=== PATIENT | male | born 1990 | race Caucasian/White ===

== ENCOUNTER 2024-10-24 15:00 | Emergency (ER) | payer BC, SELFPAY ==
[2024-10-24 15:02] VITALS: BP 170/110; PULSE 84; RESP 12; TEMP 36.7; O2SAT 98
[2024-10-24] MEDS: LORazepam 1 MG TAB PO (15:39)
--- NOTE | 2024-10-24 15:42 | ED.GENADUL_ITS ---
Discharge Plan Discharge Details Chief Complaint: PsychEval Clinical Impression: Depression ED Provider: Bartolome Humphreys Home Meds and New Rx's Prescriptions: No Action No Known Home Meds HPI General Mode of arrival: ambulatory . Date/Time Provider Initiated Documentation: 10/24/24 15:01 . Limitations to Documentation: no limitations . Information obtained by: patient . History of Present Illness 34 year old M presents to the emergency department with the chief complaint of depression/si, described as moderate, Patient started experiencing this month(s) (3) and it has been constant. No relieving factors improve symptom(s), No exacerbating factors reported . Patient notes denies chest pain, fever/chills and shortness of breath. Patient did receive the following treatments prior to arrival, none Related Data Home Medications ?Medication ?Instructions ?Recorded ?Confirmed Unknown [No Known Home Meds] 10/24/24 10/24/24 Allergies Allergy/AdvReac Type Severity Reaction Status Date / Time No Known Allergies Allergy Unverified 10/24/24 15:14 General Stated Complaint: PsychEval EVIE: 2 Review of Systems All systems reviewed & are unremarkable except as noted in HPI and below Constitutional Constitutional: Denies chills, Denies fever(s) and Denies weakness Cardiovascular Cardiovascular: Denies chest pain and Denies dyspnea Respiratory Respiratory: Denies cough and Denies dyspnea Gastrointestinal Gastrointestinal: Denies abdominal pain, Denies nausea and Denies vomiting Integumentary/Breasts Skin/Breast: Denies rash Neurologic Neurologic: Denies weakness Psychiatric Psychiatric: Reports depression Exam Const General: anxious Orientation: alert HENMT Head: normal to inspection Ears: external ears normal General nose exam: external nose normal Mouth: moist mucous membranes Eyes General: appearance normal, both eyes and all related structures Neck Neck: normal visual inspection Resp Effort & Inspection: normal respiratory effort and able to speak in complete sentences Cardio Rate: regular rate Skin General skin exam: no rashes or lesions noted Neuro General: patient alert and patient oriented x3 Extrem General: normal to inspection Psych Appearance: grossly normal Attitude: cooperative Thought Process: normal Course Vital Signs Vital signs: Vital Signs Temperature 36.7 C 10/24/24 15:02 Pulse 84 10/24/24 15:02 Respiratory Rate 12 10/24/24 15:02 Blood Pressure 170/110 H 10/24/24 15:02 Pulse Oximetry 98 10/24/24 15:02 Temperature 36.7 C 10/24/24 15:02 Temperature Source Oral 10/24/24 15:02 Pulse 84 10/24/24 15:02 Respiratory Rate 12 10/24/24 15:02 Blood Pressure 170/110 H 10/24/24 15:02 Blood Pressure Position Sitting 10/24/24 15:02 Pulse Oximetry 98 10/24/24 15:02 Oxygen Delivery Method Room Air 10/24/24 15:02 Oxygen Flow Rate 0 10/24/24 15:02 Pain Level 0 10/24/24 15:02 Medical Decision Making 34-year-old male who denies any chronic medical problems or substance abuse comes in with several months of worsening depression and thoughts of self-harm. He says that he had thoughts of wanting to kill himself by overdosing on carbon monoxide. He has not made any attempts to harm himself. He is currently calm and cooperative with a normal gait and does appear anxious and states he does feel anxiety. He has no focal neurological deficits, no meningismus, he denies any fevers or chills. I suspect depression given his reassuring exam I doubt underlying medical process, will obtain screening labs and have mental health evaluate. Patient was assessed prehospital he and mental health will be sending out referrals for voluntary placement. Lab Data Lab results reviewed: Yes I reviewed the patient's lab results. Quality:[facility] Health Related Social Needs: No Data to Display [facility] All Active Problems (Updated 10/24/24 @ 17:25 by Bartolome Humphreys MD) Depression (Chronic) Social History Smoking/Tobacco Use Status: Former Tobacco Use Smoking risk assessment performed?: Yes Alcohol Intake: current Alcohol Intake frequency: a few times a week Alcohol type: beer Drug use: Never Substance use type: does not use Housing: house Do you feel safe at home: Yes Do you feel safe in your relationship?: Yes PAWSS Have you Been Recently Intoxicated or Drunk Within the Last 30 days?: Yes Have you Ever Experienced Previous Episodes of Alcohol Withdrawal?: No Have you ever Experienced Withdrawal Seizures?: No Have you ever Experienced Delirium Tremens(DT)s?: No Have you ever undergone Alcohol Rehabilitation Treatment (i.e, inpt ot outpatient treatment programs)?: No Have you ever Experienced Blackouts?: Yes Have you ever Combined Alcohol with other Downers within the last 90 days?: No Have you ever Combined Alcohol with any other Substance of Abuse during the last 90 days?: No Positive Blood Alcohol level on Presentation? [PCS.BAL]: No Evidence of Increased Autonomic Activity (i.e. HR>120, tremor, sweating, agitation, nausea)?: No Result: 2
[2024-10-24 15:53] LABS: Abs Immature Grans 0.03 10^3/uL (0.0-0.06); Absolute Basophil Count 0.08 10^3/uL (0.0-0.2); Absolute Eosinophil Count 0.21 10^3/uL (0.0-0.7); Absolute Monocyte Count 0.77 10^3/uL (0.1-0.8); Absolute Neutrophil Count 6.53 10^3/uL (1.2-6.7); Basophils % 0.8 %; Eosinophils % 2.2 %; HCT 52.3 % (40.0-50.0); HGB 17.8 g/dL (13.5-17.5); Immature Grans % 0.3 %; MCH 30.8 pg (27.0-33.0); MCV 91 fL (80-95); MPV 10.3 fL (8.0-11.0); Monocytes % 8.1 %; Neutrophils % 68.6 %; Platelet Count 277 10^3/uL (130-400); RBC 5.78 10^6/uL (4.36-5.78); RDW 11.8 % (11.8-14.1); RDW-SD 38.9 fL; WBC 9.52 10^3/uL (4.4-10.8)
[2024-10-24 16:21] LABS: ALT 40 U/L (16-63); AST 19 U/L (15-37); Albumin 4.5 g/dL (3.4-5.0); Alkaline Phosphatase 78 U/L (46-116); BUN 9 mg/dL (7-18); Bilirubin, Total 0.6 mg/dL (0.2-1.0); CREATININE 1.3 mg/dL (0.70-1.30); Calcium 10.1 mg/dL (8.5-10.1); Chloride 102 mmol/L (98-107); Estimated GFR 73.47 (mL/min/1.73m2); Glucose 108 mg/dL (74-106); Potassium 3.8 mmol/L (3.5-5.1); Sodium 141 mmol/L (136-145); TSH (W/Ref FT4) 2.57 uIU/mL (0.36-3.74); Total Protein 8.6 g/dL (6.4-8.2)
[2024-10-24 16:24] LABS: ETHANOL BLOOD < 3.0 mg/dL (<10)
[2024-10-24 16:25] LABS: Salicylate < 2.8 mg/dL (<2.8)
[2024-10-24 16:27] LABS: Acetaminophen < 2 ug/mL (10-30)
--- NOTE | 2024-10-24 16:42 | PDOC.MHCN_ITS ---
Date of service: 10/24/24 Time of Service: 14:00 PHQ-9 Over the last 2 weeks, how often have you been bothered by any of the following problems? 1. Little interest or pleasure in doing things: more than half the days 2. Feeling down, depressed, or hopeless: nearly every day 3. Trouble falling or staying asleep, or sleeping too much: more than half the days 4. Feeling tired or having little energy: more than half the days 5. Poor appetite or overeating: more than half the days 6. Feeling bad about yourself - or that you are a failure or have let yourself and your family down: nearly every day 7. Trouble concentrating on things, such as reading the newspaper or watching television: several days 8. Moving or speaking so slowly that other people could have noticed? - Or the opposite - being so fidgety or restless that you have been moving around a lot more than usual: not at all 9. Thoughts that you would be better off or of hurting yourself in some way: nearly every day Total score: 18 Source: Developed by Drs. Bhanu Ortega, Darline Castaneda, Doug Fink and colleagues, with an educational alice from [employer]. Suicide Severity Rate CSSRS Have you wished you were or wished you could go to sleep and not wake up?: Yes Have you actually had any thoughts of killing yourself?: Yes CSSRS2 Have you been thinking about how you might do this?: Yes Have you had these thoughts and had some intention of acting on them?: Yes Have you started to work out or worked out the details of how to kill yourself? Do you intend to carry out this plan?: Yes CSSRS3 Have you ever done anything, started to do anything or prepared to do anything to end your life?: No CSSRS4 Was this within the past three months?: Yes Screening Score Total Score: 6 Screening: Positive Mental Health Emergency Note Release [facility] release signed:: Yes Reason for Visit Actively suicidal In the last 2 weeks has the pt presented for ES prior to today?: No Non Suicidal Self Injury Current: No History: No Safety Risk/Harm to Self or Others Current Ideation to Harm Self or Others: Yes to self. Intent: yes, has intent. Plan: yes,has a plan. Risk: Does risk to harm exist?: yes. Access to means: Yes. Risk: High Risk Duty to warn indicated: No Asssessment/Mental Status Appearance: Well groomed Attitude: Cooperative, Guarded and Friendly Behavior: Unremarkable Speech: Normal and Soft Affect: Cogruent with mood Mood: Sad, Stressed, Depressed and Anxious Thought process: Goal directed Hallucinations: No Delusions: No Attention: Unremarkable Perception: Not impaired Orientation: Fully orientated Memory: Intact Insight: Fair Judgement: Poor Neurovegetative Symptoms Sleep: Decrease Appetitie: Decrease Interests: Decrease Energy: Decrease Libido: Not applicable Substance Use: Other (none) Drug Issues: Other (none) Do you use nicotine?: No Have you used substances in the last 7 days?: No Additional Issues: Assaultive/Threatening Behavior: No Medical Concerns: No Client engaged in active self harm w/weapon: No Threatening to run away: No Child reported abuse/neglect: No Voluntarily presenting for services: Yes Domestic violence is a concern: No Extreme Psychosis or extreme behavior is present: No Impression Very nice and appropriate man who is seeking supports due to active suicidal thoughts with a plan [facility] and [facility] (therapy and case management) Plan/Disposition Recommended Disposition: Hospitalization (waitng on medical from hospital then will be faxed) No. Plan: [facility] zone B [facility] Person reported agreement to plan: Yes Facilities contacted if Applicable [facility] (medical has not been faxed as of yet but will be forthcoming) Not accepted, No bed available [facility] (medical has not been faxed as of yet but will be forthcoming) Not accepted, (waiting on medical) Other (waiting on medical from hospital), [facility] (medical has not been faxed as of yet but will be forthcoming) Not accepted, (waiting for fax with medical to send) Other (waiting on fax from hospital to send out) Reports/communication Outcome discussed with: ED/Personnel
[2024-10-25 06:30] LABS: Bilirubin Negative (Negative); Blood Negative (Negative); Clarity Clear (Clear); Glucose Negative (Negative); Ketones Trace mg/dL (Negative); Leukocyte Esterase Small (Negative); Nitrite Positive (Negative); Urobilinogen 0.2 mg/dL (Up to 0.2); pH 6.5 (5-8)
--- NOTE | 2024-10-25 06:31 | W.EDPROG ---
Date of service: 10/25/24 Time of Service: 06:31 Medical Decision Making Patient had presented to ED with depression and thoughts of self-harm. He has been medically cleared. He is being held voluntarily for psychiatric admission. No issues overnight. Quality:[facility] Health Related Social Needs: No Data to Display Discharge Plan Discharge Details Chief Complaint: PsychEval Clinical Impression: Depression Primary Care Provider: Unknown,Unknown ED Provider: Bhanu Beal Home Meds and New Rx's Prescriptions: No Action No Known Home Meds
[2024-10-25 06:45] LABS: Bacteria Many HPF (Negative); C & S Indicated? No; Casts Negative LPF (Negative); Crystals Negative HPF (Negative); Epithelial Cells Many HPF (Negative); Mucus Trace (Negative); RBC 0-2 HPF (0-2)
--- NOTE | 2024-10-25 07:21 | W.EDPROG ---
Date of service: 10/25/24 Time of Service: 07:21 Medical Decision Making I received signout on this patient. Please see my separate note for details. I ordered the patient a regular diet on safety tray. He has no home medications. Patient here for voluntary psychiatric admission for depression and SI. Has been cooperative. 4:40 PM No active behavioral issues last shift. Patient was found to have an acute UTI for which I treated him with 10 days of cefpodoxime. Quality:[facility] Health Related Social Needs: No Data to Display Discharge Plan Discharge Details Chief Complaint: PsychEval Clinical Impression: Depression, Acute UTI Primary Care Provider: Unknown,Unknown ED Provider: Bradly Duggan Home Meds and New Rx's Prescriptions: No Action No Known Home Meds
--- NOTE | 2024-10-25 13:03 | MHPN_ITS ---
Date of service: 10/25/24 Time of Service: 09:45 PHQ-9 Over the last 2 weeks, how often have you been bothered by any of the following problems? 1. Little interest or pleasure in doing things: several days 2. Feeling down, depressed, or hopeless: nearly every day 3. Trouble falling or staying asleep, or sleeping too much: several days 4. Feeling tired or having little energy: more than half the days 5. Poor appetite or overeating: several days 6. Feeling bad about yourself - or that you are a failure or have let yourself and your family down: more than half the days 7. Trouble concentrating on things, such as reading the newspaper or watching television: several days 8. Moving or speaking so slowly that other people could have noticed? - Or the opposite - being so fidgety or restless that you have been moving around a lot more than usual: several days 9. Thoughts that you would be better off or of hurting yourself in some way: nearly every day Total score: 15 Source: Developed by Drs. Bhanu Ortega, Darline Castaneda, Doug Fink and colleagues, with an educational alice from [employer]. Suicide Severity Rate CSSRS Have you wished you were or wished you could go to sleep and not wake up?: Yes Have you actually had any thoughts of killing yourself?: Yes CSSRS2 Have you been thinking about how you might do this?: Yes Have you had these thoughts and had some intention of acting on them?: Yes Have you started to work out or worked out the details of how to kill yourself? Do you intend to carry out this plan?: Yes CSSRS3 Have you ever done anything, started to do anything or prepared to do anything to end your life?: No CSSRS4 Was this within the past three months?: No Screening Score Total Score: 4 Screening: Positive Mental Health Emergency Note Release [facility] release signed:: Yes Reason for Visit suicidal ideation with a plan, anxiety, and depression In the last 2 weeks has the pt presented for ES prior to today?: No Non Suicidal Self Injury Current: No History: No Safety Risk/Harm to Self or Others Current Ideation to Harm Self or Others: Yes to self. Intent: yes, has intent. Plan: yes,has a plan. Risk: Does risk to harm exist?: yes. Risk: High Risk Duty to warn indicated: No Asssessment/Mental Status Appearance: Other (hospital scrubs) Attitude: Cooperative and Friendly Behavior: Unremarkable Speech: Normal Affect: Cogruent with mood Mood: Sad, Depressed and Anxious Thought process: Goal directed Hallucinations: No Delusions: No Attention: Unremarkable and Other Perception: Not impaired Orientation: Fully orientated Memory: Intact Insight: Poor Judgement: Poor Neurovegetative Symptoms Sleep: Decrease Appetitie: Decrease Interests: Decrease Energy: Decrease Libido: Not applicable Substance Use: Other (none) Drug Issues: Other (none) Have you used substances in the last 7 days?: No Additional Issues: Assaultive/Threatening Behavior: No Medical Concerns: No Client engaged in active self harm w/weapon: No Threatening to run away: No Child reported abuse/neglect: No Voluntarily presenting for services: Yes Domestic violence is a concern: No Extreme Psychosis or extreme behavior is present: No Impression Suffering with SI, depression, and anxiety since May of 2024 with no rhyme or reason Resources [employer] reviewed and given:: 988 Plan/Disposition Recommended Disposition: Hospitalization facilities contacted. Plan: Client will wait to go inpatient to address his mental health issues Person reported agreement to plan: Yes Facilities contacted if Applicable [facility] Not accepted, No bed available (but currently reviewing) [facility] Not accepted, No bed available, [facility] Not accepted, No bed available Other: Other ([facility]) not accepted No bed available Reports/communication Outcome discussed with: ED/Personnel
--- NOTE | 2024-10-25 16:53 | CMSP_ITS ---
Date of service: 10/25/24 Time of Service: 16:55 Care Management Safety Plan Status Status: Voluntary Reason for Wait Reason for Wait: Inpatient Admission Safety Plan Safety Plan: VOLUNTARY FOR INPATIENT PSYCHIATRIC STABILIZATION.? Patient is appropriate in all interactions since arriving at [facility]; Pt has demonstrated appropriate coping and communication skills, has articulated his or her needs and concerns and is fully engaged during staff interactions. Safety plan has been established with patient, and care team, to adhere to patient goals, identify restrictions based on behavioral status, address nutrition, and determine allowed personal belongings, tools for hygiene and personal care. Determine level of activity including ambulation, level of superv ision, visitors, and determine privileges based on behaviors and level of engagement by pt. VOLUNTARY SAFETY PLAN: 1. Will remain on suicide precautions, in paper clothes 2. Will remain in Zone B under direct supervision of one-on-one staff at all times provided by [employer]; DRAKE, ANALOG IC DESIGN ENGINEER metal extrusion supervisor. 3. May have paper cups, plates, finger foods as well as a cardboard spoon with which to eat meals. 4. Follow [facility] Management of the Admitted Behavioral Health Patient policy. 5. Shower available in Zone B without restriction. 6. Personal belongings-soft items permitted at RN discretion. 7. Visitors-none at this time. 8. Activities: soft cart items, hospital tablets (Netflix/Hustle+/music) approved per RN discretion. 9.? Bathroom available in Zone B without restriction. 10. Phone: limited to [facility] cordless phone at RN discretion. Due to VOLUNTARY status, if patient wishes to leave [facility], staff will contact [facility] Crisis Screener ([phone]) and Therapy Director ([phone]) as soon as possible. In the event of elopement, notify [facility] Police ([phone]).
--- NOTE | 2024-10-25 16:55 | CMPROGNOTE_ITS ---
Date of service: 10/25/24 Time of Service: 16:56 Care Management Progress Note Progress Note Text Progress Note Text: CM huddled with staff regarding Amor's plan of care. Per RN, Amor has been appropriate and cooperative all day. [facility] requested information, which was sent. Per [facility], Amor's insurance is currently not active, which is a barrier to him receiving a bed offer from . Unfortunately this wasn't determined until the end of the day. CM will send a referral to [facility], and will inform [facility] vision care associate for additional support. Amor's address is listed in [place], so he will likely not be eligible for [facility]. Amor is voluntary, seeking inpatient psychiatric treatment. Referrals have been sent; Safety plan in place. CM will continue to follow. Social Determinants of Health Screening Social Determinants of Health last assessed: 10/25/24 Will the Patient Participate in the Screening?: Yes Do you worry about having a steady place to live?: no Problems where you live: no known problems In the past 12 months, have you had to go without electric, gas, oil or water in your home?: no Have you or anyone in your house had to go without enough food to eat?: no Has lack of transportation kept you from medical appointments or from doing things needed for daily living?: no Has anyone in your life made you feel unsafe or unsupported?: no How hard is it for you to pay for the very basics like food, housing, medical care, and heating? Would you say it is:: Not hard at all Do you want help finding or keeping work or a job?: I do not need or want help If for any reason you need help with day-to-day activities such as bathing, preparing meals, shopping, managing finances, etc., do you get the help you need?: I don?t need any help How often do you feel lonely or isolated from those around you?: Never Do you speak a language other than Serbian at home?: No Does the patient want assistance with any of the above?: No
[2024-10-25 16:57] LABS: *AMPHETAMINES SCREEN URINE Negative (Negative); *BARBITURATES SCREEN URINE Negative (Negative); *BENZODIAZEPINES SCREEN URINE Negative (Negative); Cannabinoids THC Negative (Negative); Cocaine Screen,Urine Positive (Negative); METHADONE URINE SCREEN Negative (Negative); OPIATES URINE SCREEN Negative (Negative); Tricyclic Antidepressants Negative (Negative)
[2024-10-25 18:00] LABS: Bilirubin Negative (Negative); Blood Trace-intact (Negative); Clarity Clear (Clear); Glucose Negative (Negative); Ketones Negative (Negative); Leukocyte Esterase Negative (Negative); Nitrite Negative (Negative); Specific Gravity 1.015 (1.005-1.025); Urobilinogen 0.2 mg/dL (Up to 0.2)
[2024-10-25 18:14] VITALS: BP 161/81; PULSE 71; RESP 18; TEMP 36.4; O2SAT 98
[2024-10-25 18:38] LABS: WBC Negative HPF (0-5)
[2024-10-25 18:39] LABS: Bacteria Rare HPF (Negative); C & S Indicated? No; Casts Negative LPF (Negative); Crystals Negative HPF (Negative); Epithelial Cells Negative HPF (Negative); Mucus Negative (Negative); Other Cells Negative (Negative); RBC 0-2 HPF (0-2)
--- NOTE | 2024-10-25 19:34 | W.EDPROG ---
Date of service: 10/25/24 Time of Service: 19:35 Medical Decision Making Care assumed from outgoing provider. Patient is a 34-year-old gentleman currently pending voluntary inpatient psychiatric placement for suicidal ideation. At the time of signout, there was some concern for an abnormal urinalysis. This has been repeated and there are no signs of infection and no indication for antibiotic treatment at this time. The patient is asymptomatic from a urinary standpoint. He has been stable otherwise throughout the shift. Quality:[facility] Health Related Social Needs: No Data to Display Discharge Plan Discharge Details Chief Complaint: PsychEval Clinical Impression: Depression Primary Care Provider: Unknown,Unknown ED Provider: Jacques Díaz Home Meds and New Rx's Prescriptions: No Action No Known Home Meds
[2024-10-25 19:56] VITALS: BP 142/97; PULSE 76; RESP 18; O2SAT 99
--- NOTE | 2024-10-25 20:55 | NUR.NOTE ---
when I assumed care form PT by Bartolome COOPER at 1900 PT was in bed with visitor. Nursing Note:
--- NOTE | 2024-10-25 20:57 | NUR.NOTE ---
PT and visitor were together in bed and zone B tech noticed that PT was kissing visitor. PT and visitor were stopped by knocking on the door and visitor was escorted out of the EDNursing Note:
--- NOTE | 2024-10-26 06:12 | W.EDPROG ---
Date of service: 10/25/24 Time of Service: 23:00 Medical Decision Making This patient was signed out to me. Please see previous notes for H&P and initial eval. In brief, 34yo M presenting with SI, medically cleared, pending voluntary placement. No events overnight. Did not wake patient for assessment. Will be signed out to oncoming physician, plan remains as above. Quality:[facility] Health Related Social Needs: No Data to Display Discharge Plan Discharge Details Chief Complaint: PsychEval Clinical Impression: Depression Primary Care Provider: Unknown,Unknown ED Provider: Cecily Cui Home Meds and New Rx's Prescriptions: No Action No Known Home Meds
--- NOTE | 2024-10-26 07:15 | W.EDPROG ---
Date of service: 10/26/24 Time of Service: 07:15 Medical Decision Making I received signout again on this 34-year-old male with passive thoughts of self-harm and history of depression. No active behavioral issues overnight. Patient had a repeat urinalysis which was not consistent with infection. Given his lack of symptoms we will continue to observe off of antibiotics. 3:25 PM I signed transfer paperwork to have the patient transferred to [place]. Per health catalyst unit operator Kavita Riggins patient has been accepted by Dr. Jj Malcolm. Quality:[facility] Health Related Social Needs: No Data to Display Discharge Plan Discharge Details Chief Complaint: PsychEval Clinical Impression: Depression Primary Care Provider: Unknown,Unknown ED Provider: Bradly Duggan Home Meds and New Rx's Prescriptions: No Action No Known Home Meds
[2024-10-26] MEDS: LORazepam 1 MG TAB PO (09:47)
[2024-10-26 09:50] VITALS: BP 155/98; PULSE 78; RESP 16; TEMP 36.4; O2SAT 98
--- NOTE | 2024-10-26 14:42 | CMPROGNOTE_ITS ---
Date of service: 10/26/24 Time of Service: 14:42 Care Management Progress Note Progress Note Text Progress Note Text: CM met with staff today regarding Demarco's plan of care. Per RN, he has been appropriate and cooperative while waiting for transfer to treatment. CM met with Demarco to discuss his insurance, as it was showing inactive in the system. CM supported Demarco in resolving this by helping him contact his insurance company and employer. Per his employer, his address was not changed when he moved recently, which is causing the denial. This was corrected by his employer, and his policy is now active. Demarco received bed offers at [facility] today. [facility] reached out regarding his insurance and was able to secure a PA for [place]. Transportation was arranged via [facility]. Demarco was agreeable to this plan, and transferred to [facility] for inpatient psychiatric treatment. Social Determinants of Health Screening Social Determinants of Health last assessed: 10/26/24 Will the Patient Participate in the Screening?: Yes Do you worry about having a steady place to live?: no Problems where you live: no known problems In the past 12 months, have you had to go without electric, gas, oil or water in your home?: no Have you or anyone in your house had to go without enough food to eat?: no Has lack of transportation kept you from medical appointments or from doing things needed for daily living?: no Has anyone in your life made you feel unsafe or unsupported?: no How hard is it for you to pay for the very basics like food, housing, medical care, and heating? Would you say it is:: Not hard at all Do you want help finding or keeping work or a job?: I do not need or want help If for any reason you need help with day-to-day activities such as bathing, preparing meals, shopping, managing finances, etc., do you get the help you need?: I don?t need any help How often do you feel lonely or isolated from those around you?: Never Do you speak a language other than Vietnamese at home?: No Does the patient want assistance with any of the above?: No
--- NOTE | 2024-10-27 07:46 | NUR.NOTE ---
Accessed Pt chart to advise Ovidio Blackhawk where Pt was discharged to. He was discharged to [facility]
== END 2024-10-26 15:50 ==
PROVIDERS: Emergency Medicine; Emergency Provider Emergency Medicine
DX: R45.851 Suicidal ideations (principal); F32.A Depression, unspecified; N39.0 Urinary tract infection, site not specified
CPT/HCPCS: 00123; 80053; 80307; 96127; 99285; 80320; 80329; 81003; 81015; 84443; 85025